=== PATIENT | female | born 1945 | race Caucasian/White ===

== ENCOUNTER 2017-06-02 05:53 | Day surgery (SDC) | payer MEDICARE, OTHER ==
[2017-06-02] MEDS ORDERED: LACTATED RINGERS 1,000 ML ONE (06:00)
[2017-06-02] MEDS ORDERED: PROPOFOL 200 MG/20 ML VIAL IV ONE (07:00)
[2017-06-02] MEDS ORDERED: MIDAZOLAM INJ 5 MG/5 ML VIAL ONE (07:00)
[2017-06-02] MEDS ORDERED: LIDOCAINE 1% 10 ML VIAL INJ ONE (07:00)
[2017-06-02] MEDS ORDERED: fentaNYL CITRATE INJ 50 MCG/ML AMP ONE (07:00)
[2017-06-02] MEDS ORDERED: LACTATED RINGERS 1,000 ML BAG IV ONE (07:35)
[2017-06-02] MEDS ORDERED: LACTATED RINGERS 1,000 ML IVS ONE (08:33)
--- NOTE | 2017-06-02 08:51 | OP ---
DATE OF PROCEDURE: 06/02/17 PREPROCEDURE DIAGNOSIS: 1. History of colonic polyps. POSTPROCEDURE DIAGNOSIS: 1. Sigmoid diverticulosis. 2. Internal hemorrhoids. PROCEDURE: 1. Colonoscopy. SURGEON: Pramod Simpson MD. SEDATION: Monitored anesthesia care. ESTIMATED BLOOD LOSS: 0 mL. PROCEDURE: Informed consent was obtained prior to sedation. The preprocedure cardiopulmonary assessment was satisfactory. The patient was brought to the Endoscopy Suite and placed in the left lateral decubitus position. The patient was then sedated by the anesthesia team. The tip of the Olympus colonoscope was inserted into the rectum and advanced under direct visualization to the cecum as identified by the presence of the appendiceal orifice and ileocecal valve. Preparation of the colon was good. Upon reaching the cecum, the endoscope was slowly withdrawn from the patient with careful attention paid to the entire colonic mucosa for the identification of any flat polyps or small vascular lesions. There were no polyps seen in the entire colon. In the sigmoid colon, there was some tortuosity secondary to significant diverticular disease. The endoscopic was withdrawn into the rectum where a retroflexed view of the anal verge revealed small, non-bleeding internal hemorrhoids. The endoscope was then withdrawn from the patient and the procedure terminated. RECOMMENDATION: 1. Discharge the patient home with escort. 2. Advance to regular diet. 3. Continue present medications. 4. Surveillance colonoscopy due in five years. #[id number] MTDD
[2017-06-02 13:33] VITALS: BP 121/80; TEMP 98.1; O2SAT 95
== END 2017-06-02 09:20 | disposition home or self-care (01) ==
LOC: AMB 05:53
PROVIDERS: ATTEND Internal Medicine Gastroenterology
DX: Z12.11 Encounter for screening for malignant neoplasm of colon (principal); K57.30 Diverticulosis of large intestine without perforation or abscess without bleeding; K64.8 Other hemorrhoids; E89.0 Postprocedural hypothyroidism; E66.3 Overweight; Z68.27 Body mass index [BMI] 27.0-27.9, adult; I10 Essential (primary) hypertension; J45.909 Unspecified asthma, uncomplicated; Z87.891 Personal history of nicotine dependence; Z86.010 Personal history of colon polyps; Z79.82 Long term (current) use of aspirin; Z79.899 Other long term (current) drug therapy
CPT/HCPCS: 00810; G0105; J2250; J3010; J3490; J7120

== ENCOUNTER → 2017-08-27 | Outpatient (CLI) | payer MEDICARE, OTHER ==
--- NOTE | 2017-08-30 13:46 | CT ---
EXAM DESCRIPTION: Chest w/o Contrast CLINICAL HISTORY: 72 years Female, ACUTE UPPER RESPIRATORY INFECTION, UNSPECIFIED SITES COMPARISON: June 06, 2009 TECHNIQUE: Axial imaging. No IV contrast. Sagittal and coronal reconstruction FINDINGS: Stable pleural parenchymal changes at the apices. Mild parenchymal infiltrate has developed medially within the superior segment left lower lobe. Mild parenchymal infiltrate has developed medially within the left lower lobe. Mild parenchymal infiltrate has developed within the right middle lobe medial and lateral segments. Minimal parenchymal infiltrate as developed within the right lower lobe. Minimal parenchymal infiltrate has developed within the left lateral basilar region with some nodularity. Nodular parenchymal infiltrate previously seen within the anterior segment left upper has resolved. No pleural effusions. There is no mediastinal or hilar adenopathy. Incidental retroaortic left renal vein. IMPRESSION: Scattered areas of pneumonitis as referenced above No pleural effusions No mediastinal or hilar adenopathy Report called to EVANGELINA De Leon at time of report sign off. Electronically signed by: Arik Iglesias 08/30/2017 1:45 PM CDT
== END | disposition home or self-care (01) ==
LOC: CT 09:34
PROVIDERS: ATTEND Nurse Practitioner Family
DX: J06.9 Acute upper respiratory infection, unspecified (principal)

== ENCOUNTER → 2018-02-09 | Outpatient (CLI) | payer MEDICARE, OTHER | LOC: GMAM 11:37 | PROVIDERS: ATTEND Family Medicine | DX: N39.0 Urinary tract infection, site not specified (principal); E03.9 Hypothyroidism, unspecified; I10 Essential (primary) hypertension ==

== ENCOUNTER → 2018-02-23 | Outpatient (CLI) | payer MEDICARE, OTHER ==
--- NOTE | 2018-02-23 10:20 | RAD ---
EXAM DESCRIPTION: Hand,Left 3 Views CLINICAL HISTORY: SWELLING COMPARISON: None Available. TECHNIQUE: AP, LATERAL, AND OBLIQUE FINDINGS: Three-view left hand shows no fracture or dislocation. There is no bone lesion. There are no significant arthritic changes. There is no radiopaque foreign body. IMPRESSION: Negative Electronically signed by: Shabbir Rosales MD 02/23/2018 10:18 AM CDT
== END | disposition home or self-care (01) ==
LOC: RAD 08:05
PROVIDERS: ATTEND Orthopaedic Surgery
DX: N39.0 Urinary tract infection, site not specified (principal); R22.9 Localized swelling, mass and lump, unspecified; Z01.818 Encounter for other preprocedural examination

== ENCOUNTER → 2018-05-05 | Outpatient (CLI) | payer MEDICARE, OTHER | LOC: GMAM 14:39 | PROVIDERS: ATTEND Family Medicine | DX: E03.9 Hypothyroidism, unspecified (principal) ==

== ENCOUNTER 2018-05-10 06:20 | Day surgery (SDC) | payer MEDICARE, OTHER ==
--- NOTE | 2018-05-06 09:45 | HP ---
CHIEF COMPLAINT: Mass on left hand. HISTORY OF PRESENT ILLNESS: Ms. Palmer is a 72-year-old female with a history of swelling in the palm of the hand. She has had this going on for quite some time and she has noticed that it seems to be a little bit larger. She denies any significant pain except with palpation. She has no history of this on any of her digits that she can remember. She is requesting excision. After discussing the risks, benefits and alternatives to that, the patient has given informed consent. PAST SURGICAL HISTORY: 1. Thyroidectomy. MEDICATIONS: 1. Synthroid. 2. Amlodipine. 3. Venlafaxine. 4. Valsartan. 5. Aspirin. 6. Citracal. ALLERGIES: NO KNOWN DRUG ALLERGIES. CODE STATUS: DNR. IMMUNIZATIONS: Up to date. FAMILY HISTORY: None pertinent to today's complaint. SOCIAL HISTORY: The patient does not smoke or use any illicit drugs. She does drink on occasion. REVIEW OF SYSTEMS: Negative except as indicated in the History of Present Illness. PHYSICAL EXAMINATION: VITAL SIGNS: Blood pressure 117/91. Pulse 88. Height 5'4". Weight 164 pounds. MENTAL STATUS: The patient is awake, alert, and is able to give a good history and participate in the physical. The patient is oriented to person, place and time. SKIN: Normal tone and turgor. MUSCULOSKELETAL: She has multiple firm nodules proximal to the fourth metacarpophalangeal joint. It seems to measure about 5 mm in greatest dimension. There is no erythema. There is no movement with tendon excursion. They do not seem to be causing contracture of the joints. She has full building stonecutter strength. ASSESSMENT: 1. Possible fibroma and/or early Dupuytren's. PLAN: Because she says the mass causes local irritation and she simply does not like the presence of it, she has requested operative intervention. We have discussed the risks, benefits, and alternatives to excision and the patient has given informed consent. #[id number] [facility]
[~2018-05-10 06:20] MED LIST: LACTATED RINGERS 1,000 ML ONE; SODIUM CHL 0.9% 100ML MINI-BAG 100 ML IVPB ONE; ceFAZolin SODIUM 1 GM VIAL ONE
[2018-05-10] MEDS ORDERED: DEXAMETHASONE INJ 10 MG/ML VIAL IV ONE (10:00)
[2018-05-10] MEDS ORDERED: PROPOFOL 200 MG/20 ML VIAL IV ONE (10:00)
[2018-05-10] MEDS ORDERED: LIDOCAINE 1% 50 ML VIAL INJ ONE (10:00)
[2018-05-10] MEDS ORDERED: raNITIdine HCL INJ 25 MG/ML VIAL IV ONE (10:00)
[2018-05-10] MEDS ORDERED: SODIUM CHLORIDE 0.9% 50 ML VIAL INJ ONE (10:00)
[2018-05-10] MEDS ORDERED: VANCOMYCIN HCL INJ 1,000 MG VIAL IVPB ONE (10:10)
[2018-05-10] MEDS ORDERED: BUPIVACAINE 0.25% INJ 30 ML VIAL INJ ONE (10:10)
[2018-05-10] MEDS ORDERED: ceFAZolin SODIUM 1 GM VIAL ONE (10:10)
[2018-05-10] MEDS ORDERED: MORPHINE SULFATE INJ 10 MG/ML VIAL ONE (10:29)
[2018-05-10] MEDS ORDERED: LEVALBUTEROL NEBS 1.25 MG/3 ML VIAL NEB ONE (11:46)
[2018-05-10 13:13] VITALS: BP 120/70; TEMP 98.3; O2SAT 96
--- NOTE | 2018-05-11 14:06 | OP ---
DATE OF PROCEDURE: 05/11/18 PREOPERATIVE DIAGNOSIS: 1. Dupuytren's. POSTOPERATIVE DIAGNOSIS: 1. Dupuytren's. PROCEDURE: 1. Partial fasciectomy. SURGEON: Ozzie Hinds MD. PREKINDERGARTEN TEACHER: Julien Vega CST, SA-C. ANESTHESIA: Local with sedation. COMPLICATIONS: None. FINDINGS: Thickened fascia with cord formation in the palmar aspect proximal to the fourth metacarpophalangeal joint. INDICATION: Ms. Palmer has a history of swelling on the palmar aspect of the hand. She says this did cause discomfort to both palpation and when she is grasping things. Because of the discomfort, we talked about the risks, benefits and alternatives to operative therapy. Informed consent was obtained. PROCEDURE: The patient was brought to the Operating Room and placed in supine position. Sedation was administered and local anesthetic was injected in the operative area. Following that, the arm was sterilely prepped and draped. The area was approached with a zigzag incision about 2 cm proximal to the fourth metacarpophalangeal joint. Blunt dissection was carried down to the palmar fascia and the area of thickened fascia was excised. Care was taken to protect the digital arteries and nerves throughout the procedure. Following, that the tourniquet was deflated to ensure no bleeding. There was hemostasis and therefore the wound was very thoroughly irrigated and closed with Nylon sutures. Sterile dressings were placed and the patient was placed in an extension splint. She has been encouraged to do range of motion of the first three digits. She was then taken to the Recovery Room. POSTOPERATIVE INSTRUCTIONS: She will followup with us in 2 days. #[id number] [facility]
== END 2018-05-10 13:00 | disposition home or self-care (01) ==
LOC: AMB 06:20
PROVIDERS: ATTEND Orthopaedic Surgery
DX: M72.0 Palmar fascial fibromatosis [Dupuytren] (principal); E89.0 Postprocedural hypothyroidism; I10 Essential (primary) hypertension; J45.909 Unspecified asthma, uncomplicated; Z79.82 Long term (current) use of aspirin; Z79.899 Other long term (current) drug therapy
CPT/HCPCS: 01810; 26121; 88305; A4216; J0690; J1100; J2270; J2780; J3370; J3490; J7050; J7120; J7614

== ENCOUNTER → 2018-06-07 | Outpatient (CLI) | payer MEDICARE, OTHER | LOC: GMAM 14:22 | PROVIDERS: ATTEND Family Medicine | DX: E03.9 Hypothyroidism, unspecified (principal) ==

== ENCOUNTER → 2018-08-15 | Outpatient (CLI) | payer MEDICARE, OTHER | LOC: GMAM 14:56 | PROVIDERS: ATTEND Family Medicine | DX: E03.9 Hypothyroidism, unspecified (principal) ==

== ENCOUNTER → 2018-12-29 | Outpatient (CLI) | payer MEDICARE, OTHER ==
--- NOTE | 2018-12-30 09:52 | US ---
EXAM DESCRIPTION: Pelvis Transvaginal: Ultrasound. CLINICAL HISTORY: 73 years Female ABN LABS. Family history of ovarian cancer. COMPARISON: Pelvic ultrasound 05/08/2014. No prior reports. TECHNIQUE: Transcutaneous scanning through the urine filled bladder. Endovaginal scanning. Manzanares-scale and Doppler modes. FINDINGS: Uterus 4.2 x 4.1 x 2.6 cm. Transabdominally and 5.3 x 2.6 x 3.9 cm on the endovaginal scan. Endometrial thickness 3 mm. Fluid in the endometrial cavity. The myometrium appears heterogeneous. The uterus is not retroverted. Cervix 3.9 mm cyst. Cul-de-sac contains no fluid. Bilateral ovaries not seen. No adnexal mass or free fluid. IMPRESSION: Small uterus in normal position. Fluid in the endometrial cavity. No endometrial thickening. Similar appearance on the pelvic ultrasound from 2013. Nabothian cyst in the cervix. No fluid in the cul-de-sac or adnexa. Ovaries were not seen. Electronically signed by: Julien Shell MD 12/30/2018 9:49 AM [facility]
== END ==
LOC: US 09:55
PROVIDERS: ATTEND Family Medicine
DX: R68.89 Other general symptoms and signs (principal); N88.8 Other specified noninflammatory disorders of cervix uteri

== ENCOUNTER → 2019-09-13 | Outpatient (CLI) | payer MEDICARE, OTHER | LOC: GMAM 14:19 | PROVIDERS: ATTEND Family Medicine | DX: E03.9 Hypothyroidism, unspecified (principal); I10 Essential (primary) hypertension ==

== ENCOUNTER → 2019-10-02 | Outpatient (CLI) | payer MEDICARE, OTHER ==
--- NOTE | 2019-10-02 13:56 | US ---
EXAM DESCRIPTION: Venous,Lower Extremity LT: ULTRASOUND. CLINICAL HISTORY: EDEMA, UNSPEC COMPARISON: None Available. TECHNIQUE: Manzanares-scale and doppler sonographic evaluation of the deep venous system of the left lower extremity. FINDINGS: Doppler evaluation shows normal color flow and normal phasicity and augmentation of the left common femoral vein, femoral vein, popliteal vein, greater saphenous vein, junction with the CFV. Also normal color flow and normal phasicity and augmentation of the peroneal, and posterior tibial vein. The left lower extremity deep veins were completely compressible; normal occlusion with transducer pressure. Manzanares-scale survey showed no echogenic thrombus within these veins. IMPRESSION: 1. Duplex ultrasound evaluation of the left lower extremity deep venous system showing no evidence of thrombosis. Electronically signed by: Julien Shell MD 10/02/2019 1:55 PM [facility]
== END ==
LOC: US 10:00
PROVIDERS: ATTEND Family Medicine
DX: R60.9 Edema, unspecified (principal)

== ENCOUNTER → 2019-12-13 | Outpatient (CLI) | payer MEDICARE, OTHER | LOC: GMAM 14:39 | PROVIDERS: ATTEND Family Medicine | DX: E03.9 Hypothyroidism, unspecified (principal) ==

== ENCOUNTER → 2019-12-21 | Outpatient (CLI) | payer MEDICARE, OTHER ==
--- NOTE | 2019-12-22 08:06 | MRI ---
Study: MRI of the Left Hip. Indication: PAIN IN LEFT HIP Technique: Multiplanar, multi sequence MRI of the left hip was obtained without intravenous contrast. Comparison: None. Findings: Patchy grade 4 chondrosis and subchondral cystic change anterior superior acetabulum and posterior acetabulum. Additional areas of grade 3 and mild grade 4 chondral thinning throughout the left hip joint. Small joint line osteophytes. Slight acetabular undercoverage. The left hip labrum is hypertrophied and markedly degenerated. A multilobulated 30 mm paralabral cyst noted along the anterior superior margin of the acetabulum. No acute fracture or osteonecrosis. Tiny left hip effusion. Tendinosis bilateral gluteus minimus/medius tendon insertions with mild bilateral greater trochanteric bursal edema. Tendinosis bilateral hamstring tendon origins. Mild pubic symphysis osteoarthritis. At least [id number] right hip osteoarthritis and right hip labral tearing present as well Impression: Moderate to severe left hip osteoarthritis with labral degeneration and prominent anterior superior sublabral cyst. No acute fracture or osteonecrosis. Additional findings as above. Electronically signed by: Aleks Londono MD 12/22/2019 8:05 AM [facility]
== END ==
LOC: MRI 11:09
PROVIDERS: ATTEND Family Medicine
DX: M16.12 Unilateral primary osteoarthritis, left hip (principal); M71.352 Other bursal cyst, left hip

== ENCOUNTER → 2020-10-02 | Outpatient (CLI) | payer MEDICARE, OTHER | LOC: GMAM 11:03 | PROVIDERS: ATTEND Family Medicine | DX: E03.9 Hypothyroidism, unspecified (principal); I10 Essential (primary) hypertension; R73.9 Hyperglycemia, unspecified ==

== ENCOUNTER → 2020-10-29 | Outpatient (CLI) | payer MEDICARE, OTHER ==
--- NOTE | 2020-10-30 07:21 | MRI ---
EXAM DESCRIPTION: MRI left shoulder CLINICAL HISTORY: Left shoulder pain COMPARISON: None. TECHNIQUE: Multiplanar, multisequence MR images of the left shoulder FINDINGS: Moderate acromioclavicular osteoarthritis. Type II acromion with mild anterior lateral downsloping. Small-volume subacromial subdeltoid bursal fluid/synovitis High-grade partial tear of the supraspinatus tendon at the anterior insertion to the mid critical zone. Anteroposterior extent of tear 12 mm, mediolateral 7 mm. Muscle volume mildly decreased with grade 1 fatty infiltration Infraspinatus tendinosis without tear. Mild muscle volume loss and grade 1 fatty infiltration. Teres minor tendon and muscle are normal. Subscapularis tendon intact. Mild muscle volume loss and grade 1 fatty infiltration Long head biceps tendon normal in the bicipital groove and intra-articular. Labral anchor intact. Small region of sublabral cystic change anterior inferior spanning about 7 mm craniocaudal by 4 mm transverse. This is at the chondral labral junction. No acute labral detachment. No other glenoid chondrosis Mild to moderate humeral chondrosis with chondral thinning medially. Tiny humeral head osteophyte. Minimal joint fluid. No synovitis or intra-articular body IMPRESSION: High-grade partial tear of the supraspinatus tendon Moderate acromioclavicular osteoarthritis with subacromial subdeltoid bursitis Electronically signed by: Justin Jansen MD 10/30/2020 7:20 AM [facility]
== END ==
LOC: MRI 09:57
DX: M75.111 Incomplete rotator cuff tear or rupture of right shoulder, not specified as traumatic (principal); M19.011 Primary osteoarthritis, right shoulder; M75.51 Bursitis of right shoulder